=== PATIENT | female | born 1955 | race Caucasian/White ===

== ENCOUNTER 2016-11-23 10:55 | Emergency (ER) | payer OTHER, BC ==
[2016-11-23 11:56] VITALS: BP 119/65
--- NOTE | 2016-11-23 12:44 | UC ---
Cardiac HPI - HPI Summary HPI Summary: 61 yo female with right lateral chest pain x 3 years worse past 2-3 weeks pain can occur up to 10x day lasts seconds to minutes increased with twisting /using right arm/lifting with right arm - History of Current Complaint Chief Complaint: UCGeneralIllness Stated Complaint: RIGHT RIB PAIN Time Seen by Provider: 11/23/16 12:33 Hx Obtained From: Patient Onset/Duration: Sudden Onset, Lasting Minutes Timing: Intermittent Episodes Lasting: Initial Severity: Moderate Current Severity: None Pain Intensity: 0 Chest Pain Location: Discrete at:, Right Lateral Character: Sharp/Stabbing Aggravating: Position Alleviating: Spontaneous Resolution Associated Signs & Symptoms: Positive: Chest Pain. Negative: Vision Changes, Anxiety, Recent Stress, Headaches, Numbness, Tingling, Weakness, Dizziness, SOB , Swelling, Syncope, Fever, Diaphoresis, Nausea/Vomiting, Palpitations, Cough, Hemoptysis, Back Pain, Abdominal Pain, Calf Pain/Swelling - Allergy/Home Medications Allergies/Adverse Reactions: Allergies Allergy/AdvReac Type Severity Reaction Status Date / Time Erythromycin Allergy Intermediate NAUSEA AND Verified 11/23/16 11:32 "JITTERY" Niacin Allergy NAUSEA, Verified 11/23/16 11:32 "JITTERY" Home Medications: Home Medications Cyanocobalamin [B-12] 1,000 mcg PO DAILY 11/23/16 [History Confirmed 11/23/16] Diuretic ? Name 1 tab PO DAILY 11/23/16 [History] Docusate CAP* [Colace Cap*] 100 mg PO DAILY 11/23/16 [History Confirmed 11/23/16 ] Meloxicam 7.5 mg PO DAILY PRN 11/23/16 [History Confirmed 11/23/16] Minocycline HCl [Minocin] 100 mg PO BID 11/23/16 [History Confirmed 11/23/16] Omeprazole CAP* [Prilosec CAP* 20 MG] 40 mg PO BID 11/23/16 [History Confirmed 11/23/16] Polyethylene Glycol 3350* [Miralax*] 17 gm PO DAILY PRN 11/23/16 [History Confirmed 11/23/16] Potassium Chloride Microencaps [Potassium Chloride Cr] 10 meq PO DAILY 11/23/16 [History Confirmed 11/23/16] Probiotic Product [Acidophilus Super Probiot] 1 cap PO DAILY 11/23/16 [History Confirmed 11/23/16] Simethicone [Gas-X] 80 mg PO PRN 11/23/16 [History] Turmeric (Curcuma Longa) [Turmeric] BID 11/23/16 [History] PMH/Surg Hx/FS Hx/Imm Hx Previously Healthy: Yes GI/ History Of: Reports: Ulcer - Surgical History Surgical History: Yes Surgery Procedure, Year, and Place: GASTRIC BYPASS. CHOLYCYSTECTOMY. KIDNEY STONES. HERNIEA REPAIR. TONSILLECTOMY. LAZER SUGERY R EYE. TUBAL LIGATION - Family History Known Family History: Positive: Hypertension, Diabetes Negative: Cardiac Disease - Social History Alcohol Use: None Substance Use Type: None Smoking Status (MU): Never Smoked Tobacco Review of Systems Constitutional: Negative Skin: Negative Eyes: Negative ENT: Negative Respiratory: Negative Cardiovascular: Chest Pain Gastrointestinal: Negative Genitourinary: Negative Motor: Negative Neurovascular: Negative Musculoskeletal: Negative Neurological: Negative Psychological: Negative All Other Systems Reviewed And Are Negative: Yes Physical Exam Triage Information Reviewed: Yes Appearance: Well-Appearing, No Pain Distress, Well-Nourished Vital Signs: Initial Vital Signs Temp 98.1 F 11/23/16 11:42 Pulse 59 11/23/16 11:42 Resp 16 11/23/16 11:42 BP 119/65 11/23/16 11:42 Pulse Ox 100 11/23/16 11:42 Vital Signs Reviewed: Yes Eyes: Positive: Conjunctiva Clear ENT: Positive: Hearing grossly normal. Negative: Nasal congestion, Nasal drainage, Tonsillar exudate, Trismus, Muffled/hoarse voice Dental: Negative: Gross Decay/Caries @, Dental Fracture @ Neck: Positive: Supple, Nontender Respiratory: Positive: Lungs clear, Normal breath sounds, No respiratory distress. Negative: Chest non-tender Cardiovascular: Positive: RRR, No Murmur Abdomen Description: Positive: Nontender. Negative: CVA Tenderness (R), CVA Tenderness (L), Distended, Guarding Bowel Sounds: Positive: Present Musculoskeletal: Positive: ROM Intact, No Edema Neurological: Positive: Alert Skin Exam: Normal - Clinical Impression Provider Diagnoses: right chest wall pain Discharge - Discharge Plan Condition: Stable Disposition: HOME Patient Education Materials: Chest Wall Pain (ED) Referrals: Irving Fuller DO [Primary Care Provider] - 1 Week Additional Instructions: your XRAYS were normal I suggest tylenol continue heat Images Front/Back of Body, Lg ([place]): 1 - tender here
--- NOTE | 2016-11-23 13:06 | RAD ---
INDICATION: Intermittent right rib pain. TECHNIQUE: 4 views of the right ribs were obtained. FINDINGS: No fracture or significant focal osseous abnormality is seen. IMPRESSION: NO EVIDENCE FOR FRACTURE.
== END 2016-11-23 13:20 | disposition home or self-care (01) ==
LOC: UCCORT 10:55
DX: R07.89 Other chest pain (principal); Z88.1 Allergy status to other antibiotic agents; Z88.8 Allergy status to other drugs, medicaments and biological substances; Z90.49 Acquired absence of other specified parts of digestive tract; Z98.84 Bariatric surgery status; Z87.442 Personal history of urinary calculi
CPT/HCPCS: 99211; G0463

== ENCOUNTER 2017-03-07 16:15 | Emergency (ER) | payer OTHER, BC ==
[2017-03-07 16:28] VITALS: BP 136/63
--- NOTE | 2017-03-07 17:12 | UC ---
Lower Extremity/Ankle HPI - HPI Summary HPI Summary: patient ran into a rotatiller with the right lower leg. She has ahd increased swelling of the lower leg and pain around the ankle. happened 8 days ago - History of Current Complaint Chief Complaint: UCLowerExtremity Stated Complaint: RIGHT FOOT PAIN Time Seen by Provider: 03/07/17 16:57 Hx Obtained From: Patient ?: No Onset/Duration: Sudden Onset, Lasting Days Aggravating Factor(s): Standing, Ambulation Alleviating Factor(s): Rest Able to Bear Weight: Yes - Allergies/Home Medications Allergies/Adverse Reactions: Allergies Allergy/AdvReac Type Severity Reaction Status Date / Time Erythromycin Allergy Intermediate NAUSEA AND Verified 11/23/16 11:32 "JITTERY" Niacin Allergy NAUSEA, Verified 11/23/16 11:32 "JITTERY" Home Medications: Home Medications Potassium Citrate (Alkalinizer [Potassium Citrate] 2 tab PO SEE INSTRUCTIONS [History Confirmed 03/07/17] Solifenacin(NF) [Vesicare(NF)] 5 mg PO DAILY 03/07/17 [History Confirmed ] PMH/Surg Hx/FS Hx/Imm Hx Previously Healthy: Yes - Surgical History Surgical History: Yes Surgery Procedure, Year, and Place: GASTRIC BYPASS; b/l knee replacements. CHOLYCYSTECTOMY. KIDNEY STONES. HERNIA REPAIR. TONSILLECTOMY. KYUNG GUERRA R EYE. TUBAL LIGATION - Family History Known Family History: Positive: Hypertension, Diabetes Negative: Cardiac Disease - Social History Alcohol Use: None Substance Use Type: None Smoking Status (MU): Never Smoked Tobacco - Immunization History Most Recent Tetanus Shot: 2003 Review of Systems Constitutional: Negative Skin: Bruising Eyes: Negative ENT: Negative Respiratory: Negative Cardiovascular: Negative Gastrointestinal: Negative Genitourinary: Negative Motor: Negative Neurovascular: Negative Musculoskeletal: Arthralgia, Decreased ROM, Edema, Myalgia Neurological: Negative Psychological: Negative All Other Systems Reviewed And Are Negative: Yes Physical Exam Triage Information Reviewed: Yes Vital Signs: Initial Vital Signs Temp 99.5 F 03/07/17 16:19 Pulse 65 03/07/17 16:19 Resp 20 03/07/17 16:19 BP 136/63 03/07/17 16:19 Vital Signs Reviewed: Yes Eye Exam: Normal ENT: Positive: Hearing grossly normal, Pharynx normal, TMs normal Dental Exam: Normal Neck exam: Normal Cardiovascular Exam: Normal Cardiovascular: Positive: RRR, No Murmur, Pulses Normal Abdominal Exam: Normal Abdomen Description: Positive: Nontender, No Organomegaly, Soft Bowel Sounds: Positive: Present Musculoskeletal: Positive: Strength Limited @, ROM Limited @ - in dorsi and plantar flexion, Edema @ - from calve to ankle Neurological Exam: Normal Neurological: Positive: Alert, Muscle Tone Normal Psychological Exam: Normal Skin: Positive: Other - purple coloration of bilateral lower extremitied, small abraision to the lateral right ankle, erythema on anterior aspect of lower leg, feels warm to touch Lower Extremity Course/Dx - Course Course Of Treatment: hx obtained, exam performed, meds reviewed, xray obtained and was negative, patient does not have calf tenderness, there is some redness and warmth to the anterior lower leg above the abraision. patient is refusing a tetanus shot and an jose enrique wrap. treated for cellulitis with keflex and recommend if no improvement in 48 hours to be seen in the ER for further evaluation. - Differential Dx/Diagnosis Differential Diagnosis/HQI/PQRI: Cellulitis, Contusion, Dislocation, Fracture ( Closed), Osteomyelitis, Sprain, Strain Provider Diagnoses: cellulitis of right lower leg. abraision of right ankle. pVD Discharge - Discharge Plan Condition: Stable Disposition: HOME Patient Education Materials: Cellulitis (ED) Additional Instructions: 1. You were offered a tetanus shot today, we do not have a record of tetanus since 2003. I urge you to check with your primary provider to double check the last date. 2. You need to elevate your leg as much as possible. 3. Warm water soaks will help promte circulation and better response to the antibiotics. 4. if you do not see improvement in the next 48 hours, please report to the ER for further evaluation.
--- NOTE | 2017-03-07 17:38 | RAD ---
HISTORY: Right leg trauma, pain and swelling COMPARISONS: None VIEWS: 3, Frontal, lateral, and oblique views of the right ankle and foreleg FINDINGS: BONE DENSITY: Normal. BONES: There is no displaced fracture. There are calcaneal enthesophytes. JOINTS: There is mild osteoarthritis of the tibiotalar and fibulotalar articulations. There is osteoarthritis of the midfoot. ALIGNMENT: There is no dislocation. SOFT TISSUES: There is soft tissue swelling along the ankle OTHER FINDINGS: None. IMPRESSION: SOFT TISSUE SWELLING. OSTEOARTHRITIS. NO ACUTE OSSEOUS INJURY. IF SYMPTOMS PERSIST, RECOMMEND REPEAT IMAGING.
== END 2017-03-07 18:05 | disposition home or self-care (01) ==
LOC: UCCORT 16:15
DX: S90.511A Abrasion, right ankle, initial encounter (principal); L03.115 Cellulitis of right lower limb; W22.8XXA Striking against or struck by other objects, initial encounter; Y93.9 Activity, unspecified; Y92.9 Unspecified place or not applicable; I73.9 Peripheral vascular disease, unspecified; Z98.84 Bariatric surgery status; Z96.653 Presence of artificial knee joint, bilateral; Z90.49 Acquired absence of other specified parts of digestive tract; Z87.442 Personal history of urinary calculi; Z88.1 Allergy status to other antibiotic agents
CPT/HCPCS: 99212; G0463

== ENCOUNTER 2017-03-31 15:36 | Emergency (ER) | payer BC, OTHER ==
[2017-03-31 16:00] VITALS: BP 132/62
--- NOTE | 2017-03-31 16:03 | UC ---
Back Pain HPI - HPI Summary HPI Summary: 62 YEAR OLD FEMALE PRESENTS WITH COMPLAINS OF LOWER BACK AND TAILBONE PAIN. - History of Current Complaint Chief Complaint: UCBackPain Stated Complaint: TAILBONE/LEFT ELBOW INJURY WC Time Seen by Provider: 03/31/17 16:01 - Allergies/Home Medications Allergies/Adverse Reactions: Allergies Allergy/AdvReac Type Severity Reaction Status Date / Time Erythromycin Allergy Intermediate NAUSEA AND Verified 03/31/17 15:51 "JITTERY" Niacin Allergy NAUSEA, Verified 03/31/17 15:51 "JITTERY" Home Medications: Home Medications Chlorthalidone TAB* [Hygroton TAB*] 25 mg PO DAILY 03/31/17 [History Confirmed 03/31/17] PMH/Surg Hx/FS Hx/Imm Hx - Surgical History Surgical History: Yes Surgery Procedure, Year, and Place: GASTRIC BYPASS; b/l knee replacements. CHOLYCYSTECTOMY. KIDNEY STONES. HERNIA REPAIR. TONSILLECTOMY. KYUNG GUERRA R EYE. TUBAL LIGATION - Family History Known Family History: Positive: Hypertension, Diabetes Negative: Cardiac Disease - Social History Alcohol Use: None Substance Use Type: None Smoking Status (MU): Never Smoked Tobacco - Immunization History Most Recent Tetanus Shot: 2003 Review of Systems Constitutional: Negative Skin: Negative Eyes: Negative ENT: Negative Respiratory: Negative Cardiovascular: Negative Gastrointestinal: Negative Genitourinary: Negative Motor: Negative Neurovascular: Negative Musculoskeletal: Other: - LOWER BACK PAIN TAILBONE PAIN Neurological: Negative Psychological: Negative All Other Systems Reviewed And Are Negative: Yes Physical Exam Triage Information Reviewed: Yes Vital Signs: Initial Vital Signs Temp 37.2 C 03/31/17 15:54 Pulse 65 03/31/17 15:54 Resp 16 03/31/17 15:54 BP 132/62 03/31/17 15:54 Pulse Ox 100 03/31/17 15:54 Eye Exam: Normal ENT Exam: Normal Dental Exam: Normal Neck exam: Normal Neck: Positive: 1 Respiratory Exam: Normal Cardiovascular Exam: Normal Abdominal Exam: Normal Musculoskeletal: Positive: Other: - LOWER BACK PAIN TAILBONE PAIN Neurological Exam: Normal Psychological Exam: Normal Skin Exam: Normal Back Pain Course/Dx - Differential Dx/Diagnosis Provider Diagnoses: BACK PAIN. COCCYX PAIN Discharge - Discharge Plan Condition: Stable Disposition: HOME Prescriptions: Meloxicam [Mobic] 7.5 mg PO BID #30 tab Methocarbamol TAB* [Robaxin 500 MG TAB*] 500 mg PO TID PRN #30 tab PRN Reason: Spasms - Back Patient Education Materials: Low Back Strain (ED) Referrals: Irving Fuller DO [Primary Care Provider] -
--- NOTE | 2017-03-31 17:01 | RAD ---
Indication: Fall, sacral pain 3 views of the sacrum and coccyx demonstrates limited lateral view. No fracture is identified. The sacral foramina is otherwise unremarkable. IMPRESSION: No definite fractures identified although lateral view is limited.
--- NOTE | 2017-03-31 17:02 | RAD ---
Indication: Back pain. 5 views of lumbar spine are reviewed. The lateral is limited in evaluation. The vertebral bodies appear normal in height. Degenerative disc disease at L2-L3, L3-L4, L4-L5 and L5-S1 is noted. IMPRESSION: No definite fracture is identified although multilevel degenerative disc disease is noted. Lateral images are limited in evaluation.
== END 2017-03-31 17:14 | disposition home or self-care (01) ==
LOC: UCCORT 15:36
DX: M54.5 Low back pain (principal); Z88.1 Allergy status to other antibiotic agents; Z88.8 Allergy status to other drugs, medicaments and biological substances; M47.817 Spondylosis without myelopathy or radiculopathy, lumbosacral region
CPT/HCPCS: 72110; 72220; 99212; G0463

== ENCOUNTER 2017-05-01 16:39 | Emergency (ER) | payer OTHER ==
[2017-05-01 16:54] VITALS: BP 121/65
--- NOTE | 2017-05-01 17:05 | UC ---
Elbow Pain - HPI Summary HPI Summary: 62 YEAR OLD WC FEMALE PRESENTS WITH COMPLAINS OF LEFT ELBOW PAIN POST FALL. - History of Current Complaint Chief Complaint: UCBackPain Stated Complaint: ELBOW INJURY - WC Time Seen by Provider: 05/01/17 16:41 - Allergies/Home Medications Allergies/Adverse Reactions: Allergies Allergy/AdvReac Type Severity Reaction Status Date / Time Erythromycin Allergy Intermediate NAUSEA AND Verified 05/01/17 16:47 "JITTERY" Niacin Allergy NAUSEA, Verified 05/01/17 16:47 "JITTERY" Home Medications: Home Medications Cholecalciferol [Vitamin D3] 5,000 unit PO DAILY 05/01/17 [History Confirmed 04/10] PMH/Surg Hx/FS Hx/Imm Hx Previously Healthy: Yes - Surgical History Surgical History: Yes Surgery Procedure, Year, and Place: GASTRIC BYPASS; b/l knee replacements. CHOLYCYSTECTOMY. KIDNEY STONES. HERNIA REPAIR. TONSILLECTOMY. SAMANER SUGERY R EYE. TUBAL LIGATION - Family History Known Family History: Positive: Hypertension, Diabetes Negative: Cardiac Disease - Social History Alcohol Use: None Substance Use Type: None Smoking Status (MU): Never Smoked Tobacco - Immunization History Most Recent Tetanus Shot: 2003 Review of Systems Constitutional: Negative Skin: Negative Eyes: Negative ENT: Negative Respiratory: Negative Cardiovascular: Negative Gastrointestinal: Negative Genitourinary: Negative Motor: Negative Neurovascular: Negative Musculoskeletal: Other: - LEFT ELBOW PAIN Neurological: Negative Psychological: Negative All Other Systems Reviewed And Are Negative: Yes Physical Exam Triage Information Reviewed: Yes Vital Signs: Initial Vital Signs Temp 37.1 C 05/01/17 16:49 Pulse 61 05/01/17 16:49 Resp 16 05/01/17 16:49 BP 121/65 05/01/17 16:49 Pulse Ox 100 05/01/17 16:49 Eye Exam: Normal ENT Exam: Normal Dental Exam: Normal Neck exam: Normal Neck: Positive: 1 Respiratory Exam: Normal Cardiovascular Exam: Normal Abdominal Exam: Normal Musculoskeletal: Positive: Other: - LEFT ELBOW PAIN Neurological Exam: Normal Psychological Exam: Normal Skin Exam: Normal Elbow Pain Course/Dx - Differential Dx/Diagnosis Provider Diagnoses: LEFT ELBOW SPRAIN. LEFT ELBOW PAIN Discharge - Discharge Plan Condition: Stable Disposition: HOME Prescriptions: Diclofenac 1% GEL (NF) [Voltaren 1% GEL (NF)] 2 gm TOPICAL BID PRN #1 tube PRN Reason: Pain Patient Education Materials: Elbow Sprain (ED) Referrals: Moi Narayanan MD [Medical Doctor] - Irving Fuller DO [Primary Care Provider] -
--- NOTE | 2017-05-01 17:29 | RAD ---
INDICATION: Left elbow pain after a fall COMPARISON: None. TECHNIQUE: 4 views left elbow. REPORT: The visualized bones of the left elbow are well corticated and properly aligned. There is no radiographically apparent fracture or dislocation. There is no radiographic evidence of pathologic joint effusion. IMPRESSION: Normal radiograph of the left elbow. If the patient's symptoms persist further follow-up imaging is recommended.
== END 2017-05-01 17:41 | disposition home or self-care (01) ==
LOC: UCCORT 16:39
DX: S53.402A Unspecified sprain of left elbow, initial encounter (principal); W19.XXXA Unspecified fall, initial encounter; Y93.9 Activity, unspecified; Y92.9 Unspecified place or not applicable; Y99.0 Civilian activity done for income or pay; Z90.49 Acquired absence of other specified parts of digestive tract; Z96.653 Presence of artificial knee joint, bilateral; Z98.84 Bariatric surgery status; Z88.1 Allergy status to other antibiotic agents
CPT/HCPCS: 99212; G0463

== ENCOUNTER 2017-06-12 13:41 | Emergency (ER) | payer OTHER ==
[2017-06-12 13:59] VITALS: BP 138/73
[2017-06-12] MEDS ORDERED: Acetaminophen TAB* 325 MG PO ONE (14:06)
--- NOTE | 2017-06-12 14:09 | UC ---
Respiratory Complaint HPI - HPI Summary HPI Summary: Patient has had a sore throat, sinus pain and headache has developed a cough and is not SOB on exertion - History of Current Complaint Hx Obtained From: Patient ?: No Onset/Duration: Sudden Onset, Lasting Days Timing: Constant Severity Initially: Mild Severity Currently: Severe Character: Cough: Nonproductive Aggravating Factors: Allergens, Exertion, Deep Breaths, Recumbent Position Alleviating Factors: Nothing Associated Signs And Symptoms: Positive: Dyspnea, Nasal Congestion, Sinus Discomfort <Haley Rendon - Last Filed: 06/12/17 14:38> <Fredrick Munguia - Last Filed: 06/12/17 14:48> - History of Current Complaint Chief Complaint: UCRespiratory Stated Complaint: SORE THROAT ACHY HEADACHE Time Seen by Provider: 06/12/17 13:55 - Allergies/Home Medications Allergies/Adverse Reactions: Allergies Allergy/AdvReac Type Severity Reaction Status Date / Time Erythromycin Allergy Intermediate NAUSEA AND Verified 06/12/17 13:59 "JITTERY" Niacin Allergy NAUSEA, Verified 06/12/17 13:59 "JITTERY" PMH/Surg Hx/FS Hx/Imm Hx Previously Healthy: Yes - Surgical History Surgical History: Yes Surgery Procedure, Year, and Place: GASTRIC BYPASS; b/l knee replacements. CHOLYCYSTECTOMY. KIDNEY STONES. HERNIA REPAIR. TONSILLECTOMY. LAZER SUGERY R EYE. TUBAL LIGATION - Family History Known Family History: Positive: Hypertension, Diabetes Negative: Cardiac Disease - Social History Alcohol Use: None Substance Use Type: None Smoking Status (MU): Never Smoked Tobacco - Immunization History Most Recent Influenza Vaccination: no Most Recent Tetanus Shot: 2003 <Haley Rendon - Last Filed: 06/12/17 14:38> Review of Systems Constitutional: Chills, Fatigue Skin: Negative Eyes: Negative ENT: Sore Throat, Ear Ache, Nasal Discharge, Sinus Congestion, Sinus Pain/ Tenderness Respiratory: Shortness Of Breath, Cough Cardiovascular: Negative Gastrointestinal: Negative Genitourinary: Negative Motor: Negative Neurovascular: Negative Musculoskeletal: Negative Neurological: Headache Psychological: Negative Is Patient Immunocompromised?: No All Other Systems Reviewed And Are Negative: Yes <Haley Rendon - Last Filed: 06/12/17 14:38> Physical Exam Triage Information Reviewed: Yes Appearance: Well-Nourished, Ill-Appearing, Pain Distress Vital Signs: Initial Vital Signs Temp 99 F 06/12/17 13:55 Pulse 69 06/12/17 13:55 Resp 15 06/12/17 13:55 BP 138/73 06/12/17 13:55 Pulse Ox 100 06/12/17 13:55 Vital Signs Reviewed: Yes Eye Exam: Normal ENT: Positive: Pharyngeal erythema, Nasal congestion, Nasal drainage, TMs normal , Tonsillar exudate Dental Exam: Normal Neck exam: Normal Neck: Positive: Supple, Nontender, No Lymphadenopathy Respiratory: Positive: No respiratory distress, No accessory muscle use, Crackles - LLL, Wheezing, Inspiration, Other: Cardiovascular Exam: Normal Cardiovascular: Positive: RRR, No Murmur, Pulses Normal Abdominal Exam: Normal Abdomen Description: Positive: Nontender, No Organomegaly Bowel Sounds: Positive: Present Musculoskeletal Exam: Normal Musculoskeletal: Positive: Strength Intact, ROM Intact Neurological Exam: Normal Neurological: Positive: Alert, Muscle Tone Normal Psychological Exam: Normal Skin Exam: Normal <Haley Rendon - Last Filed: 06/12/17 14:38> Vital Signs: Initial Vital Signs Temp 99 F 06/12/17 13:55 Pulse 69 06/12/17 13:55 Resp 15 06/12/17 13:55 BP 138/73 06/12/17 13:55 Pulse Ox 100 06/12/17 13:55 <Fredrick Munguia - Last Filed: 06/12/17 14:48> UC Diagnostic Evaluation - Laboratory O2 Sat by Pulse Oximetry: 100 <Haley Rendon - Last Filed: 06/12/17 14:38> Respiratory Course/Dx - Course Course Of Treatment: hx obtained, exam performed ,meds reviewed, chest xray obtained, tylneol given, rapid strep - Differential Dx/Diagnosis Differential Diagnosis/HQI/PQRI: Asthma, Bronchitis, Lower Resp Infection, Pulmonary Embolism, Sinusitis Provider Diagnoses: sinusitis <Haley Rendon - Last Filed: 06/12/17 14:38> Discharge <Haley Rendon - Last Filed: 06/12/17 14:38> <Fredrick Munguia - Last Filed: 06/12/17 14:48> - Discharge Plan Condition: Stable Disposition: HOME Prescriptions: Amoxicillin PO (*) [Amoxicillin 875 MG (*)] 875 mg PO BID #14 tab Patient Education Materials: Sinusitis (ED) Referrals: Irving Fuller DO [Primary Care Provider] - Additional Instructions: 1. take the medication as prescribed. 2. Continue with tylneol for pain 3. Increas fluid intake and get plenty of rest.
--- NOTE | 2017-06-12 14:22 | RAD ---
INDICATION: Cough and shortness of breath. COMPARISON: There are no prior studies available for comparison. TECHNIQUE: Dual-energy PA and lateral views of the chest were obtained. FINDINGS: The heart is within normal limits in size. Mediastinal and hilar contours appear within normal limits. The lungs are clear. No pleural effusion is present. IMPRESSION: NO EVIDENCE FOR ACTIVE CARDIOPULMONARY DISEASE.
== END 2017-06-12 14:43 | disposition home or self-care (01) ==
LOC: UCCORT 13:41
DX: J32.9 Chronic sinusitis, unspecified (principal); Z98.84 Bariatric surgery status; Z96.653 Presence of artificial knee joint, bilateral; Z90.49 Acquired absence of other specified parts of digestive tract; Z87.442 Personal history of urinary calculi; Z88.1 Allergy status to other antibiotic agents
CPT/HCPCS: 71020; 87651; 99212; A9270-GY; G0463

== ENCOUNTER 2017-07-19 11:13 | Emergency (ER) | payer OTHER ==
[2017-07-19 13:18] VITALS: BP 127/69
--- NOTE | 2017-07-19 13:54 | UC ---
Abdominal Pain Female HPI - HPI Summary HPI Summary: 62F presents with generalized abdominal pain today. it has been waxing and waning throughout the day. came out of no where this morning. had gallbladder removed and gastric pouch. had emergency surgery for hernia with pain that feels the same which was three years ago. no chest pain or SOB. has had constipation for past three days but increased miralax and had small BM today with minimal relief of pain. admits to nausea but no vomiting as states can not vomit due to pouch. no diarrhea. no fever. did not try anything for pain. no dysuria, hematuira, flank pain, urgency, or frequency. <Xiao Rosado - Last Filed: 07/19/17 15:17> <Joanne Silva - Last Filed: 07/19/17 19:04> - History of Current Complaint Chief Complaint: UCGI Stated Complaint: STOMACH PAIN Time Seen by Provider: 07/19/17 13:28 Allergies/Adverse Reactions: Allergies Allergy/AdvReac Type Severity Reaction Status Date / Time Erythromycin Allergy Intermediate NAUSEA AND Verified 07/19/17 13:07 "JITTERY" Niacin Allergy NAUSEA, Verified 07/19/17 13:07 "JITTERY" Home Medications: Home Medications Otc Med For Leg Cramps 07/19/17 [History] PMH/Surg Hx/FS Hx/Imm Hx - Additional Past Medical History Additional PMH: arthritis Endocrine History: Other Other Endocrine History: fibromyalgia - Surgical History Surgical History: Yes Surgery Procedure, Year, and Place: GASTRIC BYPASS; b/l knee replacements. CHOLYCYSTECTOMY. KIDNEY STONES. HERNIA REPAIR. TONSILLECTOMY. HERNIA REPAIR. KYUNG GUERRA R EYE. TUBAL LIGATION - Family History Known Family History: Positive: Hypertension, Diabetes Negative: Cardiac Disease - Social History Alcohol Use: None Substance Use Type: None Smoking Status (MU): Never Smoked Tobacco - Immunization History Most Recent Influenza Vaccination: no Most Recent Tetanus Shot: 2003 <Xiao Rosado - Last Filed: 07/19/17 15:17> Review of Systems Constitutional: Negative Respiratory: Negative Cardiovascular: Negative Gastrointestinal: Abdominal Pain, Nausea All Other Systems Reviewed And Are Negative: Yes <Xiao Rosado - Last Filed: 07/19/17 15:17> Physical Exam Triage Information Reviewed: Yes Appearance: Pain Distress Vital Signs: Initial Vital Signs Temp 98.2 F 07/19/17 13:09 Pulse 63 07/19/17 13:09 Resp 18 07/19/17 13:09 BP 127/69 07/19/17 13:09 Pulse Ox 100 07/19/17 13:09 Vital Signs Reviewed: Yes Eyes: Positive: Conjunctiva Clear ENT: Positive: Normal ENT inspection, Pharynx normal, TMs normal Respiratory: Positive: Lungs clear, Normal breath sounds Cardiovascular: Positive: RRR Abdomen Description: Positive: Soft, Other: - tenderness in LUQ, no rebound Bowel Sounds: Positive: Present Musculoskeletal Exam: Normal Neurological Exam: Normal Psychological Exam: Normal Skin Exam: Normal <Xiao Rosado - Last Filed: 07/19/17 15:17> Vital Signs: Initial Vital Signs Temp 98.2 F 07/19/17 13:09 Pulse 63 07/19/17 13:09 Resp 18 07/19/17 13:09 BP 127/69 07/19/17 13:09 Pulse Ox 100 07/19/17 13:09 <Joanne Silva - Last Filed: 07/19/17 19:04> Abd Pain Female Course/Dx - Course Course Of Treatment: 62F presents with generalized abdominal pain today. it has been waxing and waning throughout the day. came out of no where this morning. had gallbladder removed and gastric pouch. had emergency surgery for hernia with pain that feels the same which was three years ago. no chest pain or SOB. has had constipation for past three days but increased miralax and had small BM today with minimal relief of pain. admits to nausea but no vomiting as states can not vomit due to pouch. no diarrhea. no fever. did not try anything for pain. no dysuria, hematuira, flank pain, urgency, or frequency. on exam pain is in LUQ. advised patient that should go to ED due to surgical history but patient refused. discussed option and patient just wants pain medication for day and will go to the ED if gets worst. discussed risks of not having full evaulation and patient understands the risk. - Differential Dx/Diagnosis Differential Diagnosis: Bowel Obstruction, Diverticulitis, Peptic Ulcer Disease Provider Diagnoses: abdominal pain <Xiao Rosado - Last Filed: 07/19/17 15:17> Discharge <Xiao Rosado - Last Filed: 07/19/17 15:17> <Joanne Silva - Last Filed: 07/19/17 19:04> - Discharge Plan Condition: Good Disposition: HOME Prescriptions: oxyCODONE/Acetamin 5/325 MG* [Percocet 5/325 TAB*] 1 tab PO Q4H PRN #4 tab MDD 4 PRN Reason: Pain Patient Education Materials: Acute Abdominal Pain (ED) Referrals: Irving Fuller DO [Primary Care Provider] - Additional Instructions: It is advised that you go to the ED for further work up due to potential for bowel obstruction or other serious medical issue due to your extensive surgical history Please be advised have been prescribed pain medication but it may mask the pain which may need immediate treatment for Attestation Statement User Type: Provider - I was available for consult. This patient was seen by the GISELE. The patient was not presented to, seen by, or examined by me. -Shirley <Joanne Silva - Last Filed: 07/19/17 19:04>
== END 2017-07-19 14:00 | disposition home or self-care (01) ==
LOC: UCCORT 11:13
DX: R10.9 Unspecified abdominal pain (principal); Z88.1 Allergy status to other antibiotic agents; Z88.8 Allergy status to other drugs, medicaments and biological substances
CPT/HCPCS: 99212; G0463

== ENCOUNTER 2018-09-26 13:43 | Emergency (ER) | payer BC, OTHER ==
[2018-09-26 15:29] VITALS: BP 125/68
--- NOTE | 2018-09-26 16:18 | UC ---
Throat Pain/Nasal Jose Rafael HPI - HPI Summary HPI Summary: The patient is a 63-year-old female with chronic nasal congestion and sinus pressure. She states that she uses Afrin nasal spray daily. She states that her symptoms worsened a few days ago. She has facial pressure and pain as well as sore throat. She denies any fever. She has been fatigued. She denies any chest pain or shortness of breath. She denies any nausea vomiting or diarrhea. - History of Current Complaint Chief Complaint: UCGeneralIllness Stated Complaint: SORE THROAT,CONGESTION Time Seen by Provider: 09/26/18 15:45 Hx Obtained From: Patient Onset/Duration: Gradual Onset, Lasting Weeks Severity: Mild Pain Intensity: 4 Pain Scale Used: 0-10 Numeric - Epiglottits Risk Factors Epiglottis Risk Factors: Negative - Allergies/Home Medications Allergies/Adverse Reactions: Allergies Allergy/AdvReac Type Severity Reaction Status Date / Time erythromycin base Allergy Nausea Verified 09/26/18 15:21 niacin Allergy Nausea Verified 09/26/18 15:21 PMH/Surg Hx/FS Hx/Imm Hx Previously Healthy: Yes - Surgical History Surgical History: Yes Surgery Procedure, Year, and Place: GASTRIC BYPASS; b/l knee replacements. CHOLYCYSTECTOMY. KIDNEY STONES. HERNIA REPAIR. TONSILLECTOMY. HERNIA REPAIR. SAMANER SUGERY R EYE. TUBAL LIGATION - Family History Known Family History: Positive: Hypertension, Diabetes Negative: Cardiac Disease - Social History Alcohol Use: None Substance Use Type: None Smoking Status (MU): Never Smoked Tobacco - Immunization History Most Recent Influenza Vaccination: no Most Recent Tetanus Shot: 2003 Review of Systems All Other Systems Reviewed And Are Negative: Yes Constitutional: Positive: Negative Skin: Positive: Negative Eyes: Positive: Negative ENT: Positive: Sore Throat, Ear Ache, Nasal Discharge, Sinus Congestion, Sinus Pain/Tenderness Respiratory: Positive: Negative Cardiovascular: Positive: Negative Gastrointestinal: Positive: Negative Genitourinary: Positive: Negative Motor: Positive: Negative Neurovascular: Positive: Negative Musculoskeletal: Positive: Negative Neurological: Positive: Negative Psychological: Positive: Negative Physical Exam Triage Information Reviewed: Yes Appearance: Well-Appearing, No Pain Distress, Well-Nourished Vital Signs: Initial Vital Signs Temp 98.5 F 09/26/18 15:24 Pulse 69 09/26/18 15:24 Resp 16 09/26/18 15:24 BP 125/68 01/02/19 15:24 Pulse Ox 100 09/26/18 15:24 Vital Signs Reviewed: Yes Eyes: Positive: Conjunctiva Clear ENT: Positive: Hearing grossly normal, Pharyngeal erythema, Nasal congestion, TMs normal, Sinus tenderness, Uvula midline. Negative: Nasal drainage, Tonsillar swelling, Tonsillar exudate, Trismus, Muffled voice, Hoarse voice, Dental tenderness Neck: Positive: Supple, Nontender, No Lymphadenopathy Respiratory: Positive: Lungs clear, Normal breath sounds, No respiratory distress, No accessory muscle use Cardiovascular: Positive: RRR, No Murmur Musculoskeletal: Positive: ROM Intact, No Edema Neurological: Positive: Alert Psychological Exam: Normal Skin Exam: Normal Throat Pain/Nasal Course/Dx - Differential Dx/Diagnosis Provider Diagnosis: Sinusitis, acute Discharge - Sign-Out/Discharge Documenting (check all that apply): Patient Departure All imaging exams completed and their final reports reviewed: No Studies - Discharge Plan Condition: Stable Disposition: HOME Prescriptions: Amoxicillin PO (*) [Amoxicillin 875 MG (*)] 875 mg PO BID #14 tab Patient Education Materials: Sinusitis (ED) Referrals: Martin Luna MD [Medical Doctor] - Additional Instructions: wam facial compresses saline nasal spray twice daily SEE YOUR MD NEXT WEEK IF NOT BETTER - Billing Disposition and Condition Condition: STABLE Disposition: Home
== END 2018-09-26 16:23 | disposition home or self-care (01) ==
LOC: UCCORT 13:43
DX: J01.90 Acute sinusitis, unspecified (principal); Z88.1 Allergy status to other antibiotic agents
CPT/HCPCS: 99212; G0463

== ENCOUNTER 2019-07-25 06:30 | Day surgery (SDC) | payer MEDICARE, BC ==
[~2019-07-25 06:30] MED LIST: Buffered Lidocaine 1% SYRIN* 1 ML/SYRINGE INTRADERM ONE; Dexamethasone IV* 4 MG/ML 1 ML (4 MG) IV SLOW PU ONE; Famotidine IV* 10 MG/ML 2 ML (20 mg) IV ONE; Famotidine IV* 10 MG/ML 2 ML (20 mg) ONE; Lactated Ringers 1000 ML Bag* 1,000 ML IV SCH; Metoclopramide IV* 5 MG/ML 2 ML VIAL IV SLOW PU ONE; Metoclopramide IV* 5 MG/ML 2 ML VIAL ONE; ceFAZolin 2 GM PREMIX in ORs 2 GM/50 ML BAG ONE
[2019-07-25] MEDS ORDERED: Buffered Lidocaine 1% SYRIN* 1 ML/SYRINGE INTRADERM ONE (07:05)
[2019-07-25] MEDS ORDERED: fentaNYL* 50 MCG/ML 2 ML VIAL (100 MCG VIAL) ONE ×3 (07:11→10:47)
[2019-07-25] MEDS ORDERED: Bupivacaine 0.25% SDV* 30 ML ONE (07:18)
[2019-07-25] MEDS ORDERED: KETAMINE HCL* 50 MG/ML 10 ML VIAL ONE (07:24)
[2019-07-25] MEDS ORDERED: DiMENhydriNATE IV* 50 MG/ML VIAL IV PUSH PRN (07:49)
[2019-07-25] MEDS ORDERED: fentaNYL* 50 MCG/ML 2 ML VIAL (100 MCG VIAL) IV PRN (07:49)
[2019-07-25] MEDS ORDERED: Naloxone* 0.4 MG/ML 1 ML VIAL IV PRN (07:49)
[2019-07-25] MEDS ORDERED: Ondansetron INJ* 2 MG/ML VIAL ONE (09:32)
[2019-07-25] MEDS ORDERED: Ketorolac INJ* 30 MG/ML 1 ML VIAL ONE (09:32)
[2019-07-25] MEDS ORDERED: HYDROcodone/ACETAMIN 5-325 MG* 1 TAB ONE (10:42)
[2019-07-25 12:04] VITALS: BP 137/56
--- NOTE | 2019-07-25 14:10 | OP ---
DATE OF OPERATION: 07/25/19 - [facility] DATE OF : 53 SURGEON: Sonny Black MD. BASS FISHER: RICHIE Smith. An autopsy assistant was needed for the entirety of the procedure to aid in positioning of the arm in retraction. ANESTHESIOLOGIST: Dr. Lord. ANESTHESIA: General. PRE-OP DIAGNOSES: 1. Left stage IV carpometacarpal degenerative joint disease. 2. Left scaphotrapeziotrapezoid degenerative joint disease. 3. Left thumb interphalangeal joint periarticular osteophyte. POST-OP DIAGNOSES: 1. Left stage IV carpometacarpal degenerative joint disease. 2. Left scaphotrapeziotrapezoid degenerative joint disease. 3. Left thumb interphalangeal joint periarticular osteophyte. OPERATIVE PROCEDURES: 1. Left thumb carpometacarpal arthroplasty with trapeziectomy. 2. Left distally based split flexor carpi radialis tendon transfer for thumb suspension. 3. Left wrist partial trapezoidectomy with allograft interposition. 4. Excision of periarticular osteophyte left thumb interphalangeal joint. INDICATIONS: Ms. Villanueva has end stage STT joint and CMC joint arthritis; it is very painful. She also has a symptomatic osteophyte periarticular on the IP joint. We had talked about the risks and benefits. She had wanted to proceed with surgery. She understands its risks, need for revision surgery, neurovascular injury and other risks, she wants to proceed. ESTIMATED BLOOD LOSS: 2 mL. COMPLICATIONS: None. FINDINGS: See above and below. DESCRIPTION OF PROCEDURE: Ms. Villanueva was seen in the preoperative holding area. The correct site, side, and procedure were identified. We came back to the operating room. The arm was prepped and draped in the usual fashion and a time-out was performed. The arm was exsanguinated with the Esmarch and the tourniquet was inflated to 225 mmHg. I first made an incision over the left thumb interphalangeal joint osteophyte. Dissection was carried down. Subperiosteal dissection was used to expose the flap. The tendinous insertion was arm side to expose the bone. The tendinous insertion was left intact. I went ahead and excised that bony bump with the rongeur until it was back to a nice smooth bone on both sides of the joint. It was coming just right after the distal phalanx right near the subchondral bone. The bone did have a blue-tinged appearance to it. At this point, everything was looking very good. It was excised in its entirety. The wound was irrigated down. The skin was closed with 4-0 nylon suture. I then made a 2 cm to 3 cm incision over the dorsoradial thumb base. Dissection was carried down to the subcutaneous tissue longitudinally to preserve the traversing sensory nerves. The radial artery was mobilized, retracting out of the way. I then used a subperiosteal dissection to raise periosteal and capsular flaps to expose the entirety of the trapezium. This was then excised in a piece meal fashion with a rongeur until it was completely excised. The FCR tendon was preserved in the base of the wound. I then exposed the scaphotrapezoid joint and an osteotome was used to excise the proximal 3 mm of the trapezoid bone. This came out in one nice wedge and it was very smooth and nice resection. I took just a little bit more to make sure we had an adequate resection of the trapezoid. I then irrigated out the wound and I placed bone wax on the cancellous bone of the remaining trapezoid. At this point, everything was looking good. I went ahead and made a bone tunnel from the dorsoradial thumb metacarpal exiting out the volar ulnar articular surface near the insertion site of the FCR tendon. I then made a 1 cm incision just proximal to the wrist flexion crease. The FCR tendon sheath was released. The tendon was brought up into the wound. The tendon was split longitudinally with a 15-blade. A 26-gauge wire was passed in the tendon split. I then made 2 more incisions proximal and I then released the FCR tendon sheath along the course of the tendon. A Christine clamp was used to pull the 26-gauge wire under the skin out up into the proximal wound releasing the half the tendon at the musculotendinous junction. The free end of the tendon was then shuttled down into the thumb base wound with a two 26 gauge wires, was then taken through bone tunnel back around the intact limb and the maximum tension was set. As the tendon transfer was secured with 3 figure- of-eight 3-0 Ethibond suture, the first sewing all limbs of the tendon transfer together, the last 2 sewing intact limb to intact limb. At this point, the carpometacarpal arthroplasty portion was looking very good. The partial trapezoidectomy was looking very good. I went ahead and took my AlloDerm tissue and I folded it into a little mat and secured the mat along the edges with 4-0 Ethibond sutures. I then docked that as an interposition between the proximal trapezoid and the distal pole of the scaphoid. Additional AlloDerm was taken and it was placed as an interposition between the base of the metacarpal and the distal pole of the scaphoid. I then closed the capsule with 4-0 Vicryl suture, this is what provided very nice closure and kept the AlloDerm docked nicely into the interposition space. The wounds were irrigated out. The skin was closed with 4-0 nylon suture. A 0.25% Marcaine was infiltrated all about the operative area. Thumb spica splint with the IP joint free was applied. She was taken to the recovery room in stable condition. [id number]/CPS #: [id number] LINDA
== END 2019-07-25 11:58 | disposition home or self-care (01) ==
LOC: OREAST 06:30
PROVIDERS: ATTEND Orthopaedic Surgery Hand Surgery
DX: M18.12 Unilateral primary osteoarthritis of first carpometacarpal joint, left hand (principal); M19.042 Primary osteoarthritis, left hand; M25.742 Osteophyte, left hand; E11.9 Type 2 diabetes mellitus without complications; E78.5 Hyperlipidemia, unspecified; I10 Essential (primary) hypertension; R01.1 Cardiac murmur, unspecified; G47.33 Obstructive sleep apnea (adult) (pediatric); K21.9 Gastro-esophageal reflux disease without esophagitis; F41.8 Other specified anxiety disorders
CPT/HCPCS: 88304; 88311; J0690; J1885; J2405; J2765; J3010; J3490

== ENCOUNTER 2023-04-17 11:52 | Observation (INO) ==
[~2023-04-17 11:52] MED LIST changes: +Buffered Lidocaine 1% SYRIN 1 ml INTRADERM ONE; -Buffered Lidocaine 1% SYRIN* 1 ML/SYRINGE INTRADERM ONE; -Dexamethasone IV* 4 MG/ML 1 ML (4 MG) IV SLOW PU ONE; -Famotidine IV* 10 MG/ML 2 ML (20 mg) IV ONE; -Famotidine IV* 10 MG/ML 2 ML (20 mg) ONE; +HYDROmorphone 1 MG/1 ML SYRINGE IV PRN; -Lactated Ringers 1000 ML Bag* 1,000 ML IV SCH; +Lactated Ringers 1000 ml BAG 1,000 ML IV SCH; -Metoclopramide IV* 5 MG/ML 2 ML VIAL IV SLOW PU ONE; -Metoclopramide IV* 5 MG/ML 2 ML VIAL ONE; +Naloxone 0.4 mg VIAL 0.4 mg/ml 1 ml VIAL IV PRN; +Ondansetron 4 mg VIAL 2 MG/ML 2 ml VIAL IV PRN; -ceFAZolin 2 GM PREMIX in ORs 2 GM/50 ML BAG ONE
[2023-04-17] MEDS ORDERED: Chlorhexidine MOUTHWASH 0.12% 15 ML UDC ONE (11:58)
[2023-04-17] MEDS ORDERED: ceFAZolin 2 GM in NS PREMIX 2 GM/100 ML BAG IVPB ONE (12:31)
[2023-04-17] MEDS ORDERED: Ondansetron 4 mg VIAL 2 MG/ML 2 ml VIAL ONE (12:36)
[2023-04-17] MEDS ORDERED: Propofol 10 MG/ML 20 ML BTL ONE (12:36)
[2023-04-17] MEDS ORDERED: Lidocaine 2% PF 5 ML VIAL ONE (12:36)
[2023-04-17] MEDS ORDERED: Dexamethasone IV 4 MG/ML VIAL 1 ml VIAL ONE (12:36)
[2023-04-17] MEDS ORDERED: Glycopyrrolate IV 0.2 MG/ML 1 ML VIAL ONE (12:36)
[2023-04-17] MEDS ORDERED: fentaNYL 100 mcg/2 ml 50 MCG/ML VIAL ONE ×2 (12:37→16:18)
[2023-04-17] MEDS ORDERED: Midazolam 2 mg/2 ml VIAL 1 mg/ml 2 ml VIAL (2 mg) ONE (12:37)
[2023-04-17] MEDS ORDERED: Rocuronium 50 mg VIAL 10 mg/ml 5 ml VIAL (50 mg) ONE ×2 (12:40→14:48)
[2023-04-17 12:52] LABS: Rapid COVID-19 Molecular Undetected (Undetected)
[2023-04-17] MEDS ORDERED: Gelfoam Sponge SIZE 100 SPONGE ONE (13:09)
[2023-04-17] MEDS ORDERED: Lidocaine 1% w EPI 1:200,000 SDV 30 ML VIAL ONE (13:09)
[2023-04-17] MEDS ORDERED: Thrombin 5,000 UNITS 1 APPLIC KIT - topical use - TOPICAL ONE (13:09)
[2023-04-17] MEDS ORDERED: ceFAZolin VIAL VIAL ONE (13:10)
[2023-04-17] MEDS ORDERED: ceFAZolin 1 GM ADVAN 1 GM ADDV.VIAL IVPB ONE (13:10)
[2023-04-17] MEDS ORDERED: Phenylephrine 40 mcg/mL 10mL (400mcg) SYRINGE ONE ×2 (14:05→17:26)
[2023-04-17] MEDS ORDERED: HYDROcodone/ACETAMIN 5/325 mg TAB PO PRN (16:08)
[2023-04-17] MEDS ORDERED: Calcium Carb (TUMS) 500 mg CHEW TAB PO PRN (16:08)
[2023-04-17] MEDS ORDERED: Morphine 2 MG/ML SYRINGE IV PRN (16:08)
[2023-04-17] MEDS ORDERED: Senna TAB 8.6 mg TAB PO PRN (16:08)
[2023-04-17] MEDS ORDERED: Ondansetron 4 mg VIAL 2 MG/ML 2 ml VIAL IV PRN (16:14)
[2023-04-17] MEDS: fentaNYL 100 mcg/2 ml 50 MCG/ML VIAL IV PRN ×2 (16:21→16:33)
[2023-04-17] MEDS ORDERED: Ketamine HCL 50 mg/ml 10 ml VIAL (500 MG) ONE (16:54)
[2023-04-17] MEDS ORDERED: Lactated Ringers 1000 ml BAG 1,000 ML IV SCH (17:00)
[2023-04-17] MEDS ORDERED: Phenylephrine IV 10 MG/ML 1 ml VIAL ONE (18:30)
[2023-04-17] MEDS ORDERED: Insulin GLARGINE 100 un/ml 10 ml VIAL SUBCUT SCH (21:00)
[2023-04-17] MEDS: Potassium Citrate 10 meq TAB (NF) PO SCH (21:22)
[2023-04-18] MEDS: HYDROcodone/ACETAMIN 5/325 mg TAB PO PRN (08:27)
[2023-04-18] MEDS: Potassium Citrate 10 meq TAB (NF) PO SCH (09:09)
[2023-04-18] MEDS: Potassium Chlor 20 meq TAB.ER PO SCH ×2 (14:56→20:35)
[2023-04-19] MEDS: HYDROcodone/ACETAMIN 5/325 mg TAB PO PRN (08:33)
[2023-04-19] MEDS: Potassium Chlor 20 meq TAB.ER PO SCH (08:34)
[2023-04-19 09:53] VITALS: BP 97/55
== END 2023-04-19 10:05 | disposition home or self-care (01) ==
LOC: OR 11:52 → SSU 11:52
PROVIDERS: ADMIT Physician Assistant; ATTEND Neurological Surgery

== ENCOUNTER 2024-09-02 07:47 | Observation (INO) ==
[~2024-09-02 07:47] MED LIST changes: -Buffered Lidocaine 1% SYRIN 1 ml INTRADERM ONE; -HYDROmorphone 1 MG/1 ML SYRINGE IV PRN; -Lactated Ringers 1000 ml BAG 1,000 ML IV SCH; +Metoclopramide 5 MG/ML VIAL (10 mg) IV PRN; +Midazolam 2 mg/2 ml VIAL 1 mg/ml 2 ml VIAL (2 mg) ONE; +NS 0.45% 1000 ml BAG 1,000 ML IV SCH; +fentaNYL 100 mcg/2 ml 50 MCG/ML VIAL ONE
[2024-09-02] MEDS ORDERED: Chlorhexidine MOUTHWASH 0.12% 15 ML UDC ONE (07:59)
[2024-09-02] MEDS ORDERED: ceFAZolin 2 GM PREMIX 2 GM/50 ML BAG ONE (08:13)
[2024-09-02 08:33] LABS: Rapid COVID-19 Molecular Undetected (Undetected)
[2024-09-02] MEDS ORDERED: Lidocaine 1% w EPI 1:100,000 MDV 50 ML VIAL ONE (09:18)
[2024-09-02] MEDS ORDERED: ceFAZolin VIAL VIAL ONE (09:18)
[2024-09-02] MEDS ORDERED: Ondansetron 4 mg VIAL 2 MG/ML 2 ml VIAL ONE (10:11)
[2024-09-02] MEDS ORDERED: Dexamethasone IV 4 MG/ML VIAL 1 ml VIAL ONE (10:11)
[2024-09-02] MEDS ORDERED: KETAMINE HCL 10 MG/ML 20 ml VIAL (200 MG) ONE (10:13)
[2024-09-02] MEDS ORDERED: Dextran 70/Hypromellose Tears Eye Drops 15 ml BTL (for Artificials Tears) BOTH EYES PRN (10:50)
[2024-09-02] MEDS ORDERED: Phenol 1.4% Throat Spray BTL MT PRN (10:50)
[2024-09-02] MEDS ORDERED: Calcium Carb (TUMS) 500 mg CHEW TAB PO PRN (10:50)
[2024-09-02] MEDS ORDERED: Benzocaine/Menthol LOZ MT PRN (10:50)
[2024-09-02] MEDS ORDERED: HYDROcodone/ACETAMIN 5/325 mg TAB PO PRN (10:50)
[2024-09-02] MEDS ORDERED: Senna TAB 8.6 mg TAB PO PRN (10:50)
[2024-09-02] MEDS ORDERED: Morphine 2 MG/ML SYRINGE IV PRN (10:50)
[2024-09-02] MEDS ORDERED: Oxymetazoline 0.05% NASAL SPR 15 ML BTL BOTH NARES PRN (10:52)
[2024-09-02] MEDS ORDERED: fentaNYL 100 mcg/2 ml 50 MCG/ML VIAL ONE (11:09)
[2024-09-02] MEDS: fentaNYL 100 mcg/2 ml 50 MCG/ML VIAL IV PRN (11:12)
[2024-09-02] MEDS: Acetaminophen IV 1 GM/100ML 1,000 MG/100 ML BAG IV ONE (13:11)
[2024-09-02] MEDS: Lactated Ringers 1000 ml BAG 1,000 ML IV SCH ×2 (13:11→13:39)
[2024-09-02] MEDS: Buffered Lidocaine 1% SYRIN 1 ml INTRADERM ONE (13:12)
[2024-09-02] MEDS: Scopolamine 1 mg/72hr PATCH TRANSDERM ONE (13:33)
[2024-09-02] MEDS: HYDROcodone/ACETAMIN 5/325 mg TAB PO PRN (14:05)
[2024-09-02] MEDS: Potassium Chlor 20 meq TAB.ER PO SCH (20:22)
[2024-09-03] MEDS: Lidocaine PATCH 5% PATCH TRANSDERM SCH (09:05)
[2024-09-03 09:36] VITALS: BP 114/53
== END 2024-09-03 11:45 | disposition home or self-care (01) ==
LOC: OR 07:47 → SSU 07:47
PROVIDERS: ADMIT Neurological Surgery; ATTEND Neurological Surgery